=== PATIENT | female | born 1975 | race Caucasian/White ===

== ENCOUNTER 2017-04-10 12:20 | Inpatient (IN) ==
[2017-04-10 13:41] LABS: Basophils % 0.3 %; Eosinophils # 0.1 K/mcL (0.0-0.6); Eosinophils % 2.7 %; Hematocrit 20.9 % (35.3-44.9); Immature Granulocytes % 0.7 % (0-4); Lymphocytes # 0.6 K/mcL (0.6-4.6); Lymphocytes % 19.5 %; Mean Corpuscular HGB Conc 30.6 g/dL (31.6-35.5); Mean Corpuscular Volume 104.5 fL (83.0-100.0); Mean Platelet Volume 9.8 fL (9.4-12.4); Monocytes # 0.4 K/mcL (0.0-1.3); Neutrophils # 1.9 K/mcL (1.6-8.9); Nucleated Red Blood Cells 0.7 /100 WBC (0); Platelet Count 172 K/mcL (140-400); Red Cell Distribution Width 14.6 % (11.5-14.5); Segmented Neutrophils % 63.8 %
[2017-04-10 13:56] LABS: Alanine Aminotransferase 31 Units/L (0-55); Albumin 2.9 g/dL (3.5-5.0); Alkaline Phosphatase 123 Units/L (38-126); Aspartate Amino Transferase 38 Units/L (5-34); BUN/Creatinine Ratio 15 (6-26); Bilirubin,Direct 0.1 mg/dL (0.0-0.5); Bilirubin,Indirect 0.1 mg/dL (0.0-1.2); Bilirubin,Total 0.2 mg/dL (0.2-1.2); Blood Urea Nitrogen 11 mg/dL (7-20); Carbon Dioxide 19 mEq/L (19-29); Chloride 114 mEq/L (98-109); Globulin 2.8 g/dL (2.4-3.5); Glucose 100 mg/dL (70-99); Lipase 78 Units/L (8-78); Osmolality,Calculated 287 (280-300); Potassium 3.8 mEq/L (3.5-4.5); Sodium 139 mEq/L (136-145); Total Protein 5.7 g/dL (6.0-8.3); eGFR For African Americans > 60 (> 60); eGFR For Non-African Americans > 60 (> 60)
[2017-04-10 14:01] LABS: Hemoglobin 6.4 g/dL (11.5-15.4)
[2017-04-10 14:01] LABS: Bilirubin,Urine Negative (Negative); Blood,Urine Negative (Negative); Clarity,Urine Clear (Clear); Color,Urine Yellow (Yellow); Glucose,Urine (UA) Normal (Normal); Ketones,Urine Negative (Negative); Leukocyte Esterase,Urine Negative (Negative); Nitrite,Urine Negative (Negative); Protein,Urine Trace mg/dL (Neg-Trace); Urobilinogen,Urine Normal (Normal)
--- NOTE | 2017-04-10 15:16 | Emergency Department Note ---
Disposition Clinical Impression: Rectal bleeding Anemia Qualifiers: Anemia type: unspecified type Qualified Code(s): D64.9 - Anemia, unspecified Disposition: Admitted As Inpatient Condition: Fair Referrals: Trixie Wilson CNP [Primary Care Provider] - Forms: ED Satisfaction Letter Time of Disposition: 17:05 General Adult HPI - General Chief complaint: ED Nausea/Vomiting/Diarrhea Stated complaint: bloody stool/abd pain Time Seen by Provider: 04/10/17 15:07 Source: patient Mode of arrival: ambulatory Limitations: no limitations Nursing Notes Reviewed: Yes Vital Signs Reviewed: Yes - History of Present Illness HPI Narrative: 41-year-old who is status post pancreas and kidney transplant who comes in with rectal bleeding. Patient states this has been going on for the last couple months and she has been evaluated at her transplant center the [facility] with colonoscopy endoscopy she's had the swallowed the camera. States have not been able to find out where she is bleeding from. Pt Subjective Complaint: Rectal bleeding Onset (ago): month(s) (2) Location: abdomen Pain Scale: 2 Consistency: intermittent Improves with: nothing, movement Associated symptoms: Reports: weakness (Generalized) - Related Data Home Medications Medication Instructions Recorded Confirmed Aspirin [Lo-Dose Aspirin EC] 81 mg PO DAILY 02/09/17 02/09/17 Citalopram [CeleXA] 20 mg PO DAILY 02/09/17 02/09/17 Ferrous Sulfate tab PO BID 02/09/17 Mycophenolate Mofetil [Cellcept] 500 mg PO QID 02/09/17 02/09/17 PredniSONE [Lashonda] 5 mg PO DAILY 02/09/17 02/09/17 Sulfamethoxazole/Trimeth DS 1 tab PO DAILY 02/09/17 02/09/17 [Bactrim Ds] Tacrolimus [Prograf] 0.5 mg PO BID 02/09/17 02/09/17 Allergies Allergy/AdvReac Type Severity Reaction Status Date / Time metoclopramide [From Reglan] Allergy Shakiness Verified 02/09/17 13:10 codeine AdvReac Nausea Verified 02/09/17 13:10 All systems ED: reviewed and negative except as stated. Constitutional: Denies: fever, chills, weakness, weight change Eyes: Denies: eye pain, eye discharge, vision change ENT ED: Denies: ear pain, throat pain, dental pain, hearing loss, epistaxis, congestion, dysphagia Cardiovascular: Denies: chest pain, palpitations, dyspnea on exertion, edema, syncope Respiratory: Denies: cough, dyspnea, wheezes, hemoptysis, stridor Gastrointestinal: Reports: abdominal pain, hematochezia. Denies: nausea, vomiting, diarrhea, constipation, hematemesis, melena Genitourinary: Denies: dysuria, frequency, hematuria, discharge Musculoskeletal: Denies: back pain, neck pain, arthralgia, myalgia Integumentary: Denies: rash, abrasion, lesions Neurological: Denies: headache, weakness, numbness, paresthesias, confusion, abnormal gait, vertigo Psychiatric: Denies: anxiety, depression, suicidal thoughts, homicidal thoughts , auditory hallucinations, visual hallucinations Endocrine: Denies: fatigue Hematological/Lymphatic: Denies: easy bleeding, easy bruising Allergic/Immunologic: Denies: facial swelling, urticaria Past Medical History - Past Medical History Medical history: Reports: no medical history, hyperlipidemia, hypertension Surgical history: Reports: transplant (Heart and renal) Psychiatric history: Reports: anxiety, depression, panic disorder - Social History Smoking Status: Never smoker Alcohol use: Reports: none Drug use: Reports: none Physical Exam - General Limitations: no limitations General appearance: alert - Head Head exam: atraumatic, normocephalic, normal inspection - Eye Eye exam: Present: normal appearance, PERRL, EOMI - ENT ENT exam: normal exam, normal oropharynx, mucous membranes moist - Neck Neck exam: Present: normal inspection, full ROM, trachea midline - Chest Chest inspection: Present: normal inspection, symmetric chest wall rise - Respiratory Respiratory exam: Present: normal lung sounds bilaterally - Cardiovascular Cardiovascular exam: Present: regular rate, normal rhythm, normal heart sounds - Abdominal Exam Abdominal exam: Present: soft, Non-Tender. Absent: tenderness, distention, guarding, rebound, rigidity - Extremities Exam Extremities exam: Present: normal inspection, full ROM. Absent: tenderness, pedal edema - Expanded Lower Extremity Exam Neurovascular/Tendon exam: Absent: motor deficit, sensory deficit, tendon deficit Gait: observed and normal - Back Exam Back exam: Present: normal inspection, full ROM. 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 The father of the patient is adamant that she stay here and just received blood. Time: 16:42 - Consultations Consultation #1: I discussed the case with who is willing to admit the patient however he wants transplant to sign off on it. Time: 16:00 Consultation #2: I spoke to the transplant service at the [facility] who is covering for and they are okay with the patient staying here they request that the patient follow-up with him as an outpatient also follow up with [facility] after discharge. Time: 17:04 Consultation #3: Discussed with , admit. Time: 17:22 Vital Signs Temperature 99 F 04/10/17 12:41 Pulse Rate 79 04/10/17 12:41 Respiratory Rate 20 04/10/17 12:41 Blood Pressure 126/74 04/10/17 12:41 O2 Sat by Pulse Oximetry 97 04/10/17 12:41 Temperature 99 F 04/10/17 12:41 Pulse Rate 79 04/10/17 12:41 Respiratory Rate 20 04/10/17 12:41 Blood Pressure 126/74 04/10/17 12:41 O2 Sat by Pulse Oximetry 97 04/10/17 12:41 Oxygen Delivery Oxygen Delivery Room Air Medical Decision Making - Lab Data Lab results reviewed: Yes I reviewed the patient's lab results. Result diagrams: 04/10/17 13:09 04/10/17 13:09 Lab Results 04/10/17 04/10/17 04/10/17 Range/Units 13:09 13:09 13:53 WBC 2.9 L (4.3-11.1) K/mcL RBC 2.00 L (3.82-4.97) M/mcL Hgb 6.4 L (11.5-15.4) g/dL Hct 20.9 L (35.3-44.9) % MCV 104.5 H (83.0-100.0) fL MCH 32.0 (28.0-33.3) pg MCHC 30.6 L (31.6-35.5) g/dL RDW 14.6 H (11.5-14.5) % Plt Count 172 (140-400) K/mcL MPV 9.8 (9.4-12.4) fL Immature Gran % 0.7 (0-4) % Seg Neutrophils % 63.8 % Lymphocytes % 19.5 % Monocytes % 13.0 % Eosinophils % 2.7 % Basophils % 0.3 % Neutrophils # 1.9 (1.6-8.9) K/mcL Lymphocytes # 0.6 (0.6-4.6) K/mcL Monocytes # 0.4 (0.0-1.3) K/mcL Eosinophils # 0.1 (0.0-0.6) K/mcL Basophils # 0.0 (0.0-0.2) K/mcL Nucleated RBCs/100 WBC 0.7 H (0) /100 WBC Sodium 139 (136-145) mEq/L Potassium 3.8 (3.5-4.5) mEq/L Chloride 114 H (98-109) mEq/L Carbon Dioxide 19 (19-29) mEq/L BUN 11 (7-20) mg/dL Creatinine 0.75 (0.57-1.11) mg/dL Est GFR ( Amer) > 60 (> 60) Est GFR (Non-Af Amer) > 60 (> 60) BUN/Creatinine Ratio 15 (6-26) Glucose 100 H (70-99) mg/dL Calculated Osmolality 287 (280-300) Calcium 8.0 L (8.6-10.8) mg/dL Total Bilirubin 0.2 (0.2-1.2) mg/dL Direct Bilirubin 0.1 (0.0-0.5) mg/dL Indirect Bilirubin 0.1 (0.0-1.2) mg/dL AST 38 H (5-34) Units/L ALT 31 (0-55) Units/L Alkaline Phosphatase 123 (38-126) Units/L Serum Total Protein 5.7 L (6.0-8.3) g/dL Albumin 2.9 L (3.5-5.0) g/dL Globulin 2.8 (2.4-3.5) g/dL Albumin/Globulin Ratio 1.0 L (1.1-2.2) Lipase 78 (8-78) Units/L Ur Specimen Adequacy See below A Urine Color Yellow (Yellow) Urine Clarity Clear (Clear) Urine pH 6.0 (5.0-8.0) pH Units Ur Specific [place] 1.030 H (1.010-1.025) Urine Protein Trace (Neg-Trace) mg/dL Urine Glucose (UA) Normal (Normal) mg/dL Urine Ketones Negative (Negative) mg/dL Urine Blood Negative (Negative) Urine Nitrite Negative (Negative) Urine Bilirubin Negative (Negative) Urine Urobilinogen Normal (Normal) mg/dL Ur Leukocyte Esterase Negative (Negative) Ur Culture Indicated? NO (NO) Blood Type Antibody Screen Crossmatch 04/10/17 Range/Units 15:54 WBC (4.3-11.1) K/mcL RBC (3.82-4.97) M/mcL Hgb (11.5-15.4) g/dL Hct (35.3-44.9) % MCV (83.0-100.0) fL MCH (28.0-33.3) pg MCHC (31.6-35.5) g/dL RDW (11.5-14.5) % Plt Count (140-400) K/mcL MPV (9.4-12.4) fL Immature Gran % (0-4) % Seg Neutrophils % % Lymphocytes % % Monocytes % % Eosinophils % % Basophils % % Neutrophils # (1.6-8.9) K/mcL Lymphocytes # (0.6-4.6) K/mcL Monocytes # (0.0-1.3) K/mcL Eosinophils # (0.0-0.6) K/mcL Basophils # (0.0-0.2) K/mcL Nucleated RBCs/100 WBC (0) /100 WBC Sodium (136-145) mEq/L Potassium (3.5-4.5) mEq/L Chloride (98-109) mEq/L Carbon Dioxide (19-29) mEq/L BUN (7-20) mg/dL Creatinine (0.57-1.11) mg/dL Est GFR ( Amer) (> 60) Est GFR (Non-Af Amer) (> 60) BUN/Creatinine Ratio (6-26) Glucose (70-99) mg/dL Calculated Osmolality (280-300) Calcium (8.6-10.8) mg/dL Total Bilirubin (0.2-1.2) mg/dL Direct Bilirubin (0.0-0.5) mg/dL Indirect Bilirubin (0.0-1.2) mg/dL AST (5-34) Units/L ALT (0-55) Units/L Alkaline Phosphatase (38-126) Units/L Serum Total Protein (6.0-8.3) g/dL Albumin (3.5-5.0) g/dL Globulin (2.4-3.5) g/dL Albumin/Globulin Ratio (1.1-2.2) Lipase (8-78) Units/L Ur Specimen Adequacy Urine Color (Yellow) Urine Clarity (Clear) Urine pH (5.0-8.0) pH Units Ur Specific [place] (1.010-1.025) Urine Protein (Neg-Trace) mg/dL Urine Glucose (UA) (Normal) mg/dL Urine Ketones (Negative) mg/dL Urine Blood (Negative) Urine Nitrite (Negative) Urine Bilirubin (Negative) Urine Urobilinogen (Normal) mg/dL Ur Leukocyte Esterase (Negative) Ur Culture Indicated? (NO) Blood Type A POSITIVE Antibody Screen NEGATIVE Crossmatch See Detail Critical Care Time Critical Care Time: Yes Total Critical Care Time: 30 Attestation: The high probability of a clinically significant, sudden or life threatening deterioration of the [GI] system(s) required my full and direct attention, intervention and personal management. The aggregate critical care time was [30] minutes. This time is in addition to time spent performing reported procedures but includes the following: [x] Data Review and interpretation [x] Patient assessment and monitoring of vital signs [x] Documentation [x] Medication orders and management
[2017-04-10] MEDS ORDERED: 0.9 % Sodium Chloride 500 ML ONE ×2 (17:42→22:41)
[2017-04-10] MEDS ORDERED: Acetaminophen 325 MG TABLET PO PRN (17:48)
[2017-04-10] MEDS ORDERED: Naloxone 0.4 MG/ML INJ IVP PRN (17:48)
[2017-04-10] MEDS ORDERED: *HR* Promethazine 25 MG/ML VIAL IVP PRN (17:48)
[2017-04-10] MEDS ORDERED: Pantoprazole 80 MG in 0.9 % Sodium Chloride 250 ML IVC SCH (18:00)
[2017-04-10 18:21] LABS: Prothrombin Time 10.9 Seconds (9.4-12.1)
[2017-04-10 18:24] LABS: Activated Partial Thrombo Time 22.5 Seconds (26.0-36.0)
--- NOTE | 2017-04-10 18:46 | Internal Med History&Physical ---
Date of Encounter: 04/10/17 Time of Encounter: 16:15 Assessment and Plan (1) Symptomatic anemia Current visit: Yes Status: Acute 1. Will start with PRBC transfusion with 3 units PRBC's. 2. Will trend Hgb/HCT. 3. Monitor on telemetry. (2) Rectal bleeding Current visit: Yes Status: Acute 1. I consulted Dr. Aguirre; Dr. Cardoso will see patient in consultation in morning. 2. Will keep npo after midnight for possible endoscopy if necessary. 3. Will request endoscopy records from [facility] and capsule endoscopy results. 4. Will place on IV Protonix drip. (3) Transplant recipient Current visit: Yes Status: Chronic 1. Patient's father adamantly refuses to transfer patient to [facility]. Patient seems agreeable if the need arises. 2. [facility] trasnplant team contacted by Dr. Delgado per my request, and they are agreeable to us admitting patient here at [place]. 3. Continue home transplant meds as prescribed. 4. Phone consult and/or transfer to [facility] if any concerns and/or complications arise. Patient voiced understanding and agreement. Father did not, however. (4) DVT prophylaxis Current visit: Yes Status: Acute 1. EPCD's. 2. No anticoagulants due to GI bleed. Internal Medicine - H&P: HPI Chief complaint: GI Bleed Admitted From: Emergency Dept Plans for Post Hospital Care: Home History of present illness: Ms. King is a 41 year old female who presents to the ER today with persistent and recurrent rectal bleeding for last 2-3 months. She has had recurrent episodes, and the most recent episode started 2 days ago. She came to the ER for evaluation and she was found to be profoundly anemic with hemoglobin 6.4. She has felt lightheaded and dizzy as well as short of breath from the anemia. Patient has had extensive workup at the [facility] in the last 2 months, including EGD, colonoscopy, and capsule endoscopy. Reportedly, her first 2 studies were negative and she is still awaiting results regarding her capsule endoscopy findings. I was asked by the ER staff to admit patient, but given her past medical history, I was rather reluctant to do so. She has extensive history of multiple transplants, including heart, lung, kidney 2, and pancreas 2. She follows extensively with [facility] transplant team, and I recommended the ER staff transfer patient to [facility]. However, patient's father is adamant that she be admitted here and not be transferred to [place]. Based upon this discussion with Dr. Delgado, I saw the patient in the ER and discussed my concerns, findings, and recommendations with patient and her father. Patient presently is stable with stable vital signs. She denies any chest pain , shortness of breath, nausea, or vomiting. She has minimal vague abdominal cramping. Furthermore, she confirms that she has had rectal bleeding off and on for the last few months. I informed her and her father that we are not a transplant center. Furthermore, I informed them that we are not familiar with and/or have expertise with her transplant medications. I recommended the ER staff contact the [facility] transplant center and discuss with their physicians. If their physicians are OK with patient staying here at [place] , I informed them we could admit her here with close phone contact with the transfer center if necessary. Additionally, if there is any complication or any concern, I would recommend transfer to [place] for further specialty consultation and care. Patient was agreeable, but her father was rather adamant and refusing to go to [place]. Dr. Delgado did contact [facility] transplant center and discussed with the transplant physician. They were agreeable with the plan and available for phone consultation and/or transfer if necessary. Past Med Surg Social Fam HX - Past Medical History Attestation: Yes The following information was validated with the patient. 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) Psychiatric history: anxiety, depression, panic disorder - Past Surgical History Surgical History: transplant (heart, double lung, kidney X2, pancreas x 2) - Social History Smoking Status: Never smoker Alcohol use: none Drug use: none Current living situation: Home, With Family Activity Level: Independent ambulation Recent Out of Country Travel Within the Last 8 Weeks: No - Family History Father Living Status: Still Living Hx Family GI Disorders: No Hx Family Genitourinary Disorders: No - Additional Family History Additional family history: No FH GI bleed, polyps, colon CA Internal Medicine - H&P: Meds Aspirin [Lo-Dose Aspirin EC] 81 mg PO DAILY 02/09/17 [History] Citalopram [CeleXA] 20 mg PO DAILY 02/09/17 [History] Ferrous Sulfate 325 mg PO BID 02/09/17 [History] Mycophenolate Mofetil [Cellcept] 500 mg PO QID 02/09/17 [History] Sulfamethoxazole/Trimeth DS [Bactrim Ds] 1 tab PO DAILY 02/09/17 [History] Ascorbate Calcium [Vitamin C] 500 mg PO BID 04/10/17 [History] Multivitamin [One Daily Essential] 1 each PO DAILY 04/10/17 [History] Omeprazole Magnesium [Prilosec Otc] 20 mg PO DAILY 04/10/17 [History] Tacrolimus [Prograf] 1 mg PO BID 04/10/17 [History] predniSONE [PredniSONE] 5 mg PO DAILY 04/10/17 [History] 3 Allergy/AdvReac Type Severity Reaction Status Date / Time metoclopramide [From Reglan] Allergy Shakiness Verified 02/09/17 13:10 codeine AdvReac Nausea Verified 02/09/17 13:10 - Constitutional Constitutional: fatigue, no chills, no fever(s), no night sweats - EENT Eyes: no blurry vision, no change in vision Ears: no ear pain, no tinnitus Nose, mouth and throat: no nasal discharge, no sinus pressure, no sore throat - Cardiovascular Cardiovascular ROS IM: dyspnea, dyspnea on exertion, no chest pain, no edema, no orthopnea, no palpitations, no syncope - Respiratory Respiratory: no cough, no hemoptysis, no chest congestion - Gastrointestinal Gastrointestinal: abdominal pain (vague cramping), cramping, heartburn, hematochezia, nausea, no hematemesis, no melena, no vomiting - Genitourinary Genitourinary: no dysuria, no flank pain, no hematuria - Musculoskeletal Musculoskeletal ROS IM: no arthralgias, no back pain, no muscle weakness - Integumentary Integumentary IM: no rash, no jaundice - Neurological Neurological ROS: dizziness, weakness, no focal weakness, no frequent falls, no headache(s) - Psychiatric Psychiatric: no anxiety, no depression - Endocrine Endocrine IM: no polydipsia, no polyuria - Hematologic/Lymphatic Hematologic/Lymphatic: no lymphadenopathy - Allergic/Immunologic Allergic/Immunologic: no wheezing, no GI upset with certain foods - Constitutional Vitals: Temp Pulse Resp BP Pulse Ox 99 F 79 20 126/74 97 04/10/17 12:41 04/10/17 12:41 04/10/17 12:41 04/10/17 12:41 04/10/17 12:41 General appearance: Present: cooperative, A&O X 3, pleasant, no acute distress Exam: pale in complexion, otherwise no distress - Head Head exam: Present: atraumatic, normal inspection - Eye Eye exam: Present: EOMI, PERRL. Absent: scleral icterus Pupils: Present: normal accommodation - ENT ENT exam: Present: mucous membranes moist, normal exam - Neck Neck exam general surgery: Present: full ROM, thyromegaly. Absent: tenderness, supple - Respiratory Respiratory exam: Present: CTAB. Absent: accessory muscle use, chest wall tenderness, rales, rhonchi, wheezes - Cardiovascular Cardiovascular exam: Present: RRR, +S1, +S2. Absent: diastolic murmur, systolic murmur - GI/Abdominal GI/Abdominal exam: Present: normal bowel sounds, soft. Absent: guarding, hepatomegaly, mass, rebound, splenomegaly, tenderness - Extremities Exam Extremities exam: Present: full ROM, warm, radial pulses palpable and symmetrical. Absent: calf tenderness, joint swelling, pedal edema - Back Exam Back exam: Present: normal inspection. Absent: CVA tenderness (L), CVA tenderness (R) - Neurological Exam Neurological exam: Present: alert, CN II-XII intact, oriented X3, no focal deficits - Psychiatric Psychiatric exam: Present: normal affect, normal mood - Skin Skin exam: Present: dry, pallor, warm Internal Med - H&P Results - Labs CBC & Chem 7: 04/10/17 13:09 04/10/17 13:09
[2017-04-10] MEDS ORDERED: 0.9 % Sodium Chloride 1,000 ML IVC SCH (21:00)
[2017-04-10] MEDS ORDERED: (Tacrolimus [Prograf] 1 MG) PO SCH (21:00)
[2017-04-10 22:34] LABS: Hematocrit 26.8 % (35.3-44.9)
[2017-04-10 22:35] LABS: Hemoglobin 8.3 g/dL (11.5-15.4)
[2017-04-10] MEDS: Ascorbic Acid 500 MG TABLET PO SCH (22:47)
[2017-04-10] MEDS: (Tacrolimus [Prograf] 1 MG) PO SCH (23:45)
[2017-04-11] MEDS ORDERED: 0.9 % Sodium Chloride 1,000 ML IVC SCH (03:15)
[2017-04-11] MEDS ORDERED: 0.9 % Sodium Chloride 250 ML ONE (03:17)
[2017-04-11] MEDS ORDERED: Pantoprazole 40 MG VIAL IVP SCH (06:00)
[2017-04-11 08:23] LABS: Alanine Aminotransferase 25 Units/L (0-55); Albumin 2.5 g/dL (3.5-5.0); Albumin/Globulin Ratio 0.9 (1.1-2.2); Alkaline Phosphatase 104 Units/L (38-126); Aspartate Amino Transferase 26 Units/L (5-34); BUN/Creatinine Ratio 12 (6-26); Bilirubin,Total 0.6 mg/dL (0.2-1.2); Blood Urea Nitrogen 8 mg/dL (7-20); Calcium 7.8 mg/dL (8.6-10.8); Carbon Dioxide 19 mEq/L (19-29); Chloride 115 mEq/L (98-109); Globulin 2.8 g/dL (2.4-3.5); Glucose 81 mg/dL (70-99); Magnesium 1.5 mg/dL (1.6-2.6); Osmolality,Calculated 287 (280-300); Potassium 3.8 mEq/L (3.5-4.5); Sodium 140 mEq/L (136-145); Total Protein 5.3 g/dL (6.0-8.3); eGFR For African Americans > 60 (> 60); eGFR For Non-African Americans > 60 (> 60)
[2017-04-11] MEDS ORDERED: Multivit/Ca/Min/Fe/FA 1 TAB TABLET PO SCH (09:00)
[2017-04-11] MEDS ORDERED: Sulfamethoxazole/Trimeth DS 1 EACH TABLET PO SCH (09:00)
[2017-04-11] MEDS ORDERED: predniSONE 5 MG TABLET PO SCH (09:00)
[2017-04-11] MEDS ORDERED: Aspirin Enteric Coated 81 MG Tablet PO SCH (09:00)
[2017-04-11 09:14] LABS: Basophils % 0.6 %; Eosinophils # 0.1 K/mcL (0.0-0.6); Eosinophils % 2.6 %; Hematocrit 32.5 % (35.3-44.9); Immature Platelets 2.1 % (1.1-6.1); Lymphocytes # 0.7 K/mcL (0.6-4.6); Lymphocytes % 23.2 %; Mean Corpuscular Hemoglobin 30.9 pg (28.0-33.3); Mean Platelet Volume 9.6 fL (9.4-12.4); Monocytes # 0.5 K/mcL (0.0-1.3); Monocytes % 15.4 %; Neutrophils # 1.8 K/mcL (1.6-8.9); Nucleated Red Blood Cells 0.6 /100 WBC (0); Platelet Count 177 K/mcL (140-400); Red Blood Count 3.37 M/mcL (3.82-4.97); Red Cell Distribution Width 17.7 % (11.5-14.5); Segmented Neutrophils % 57.2 %
[2017-04-11 09:22] LABS: Mean Corpuscular Volume 96.4 fL (83.0-100.0)
[2017-04-11 09:23] LABS: Hemoglobin 10.4 g/dL (11.5-15.4)
[2017-04-11] MEDS: (Tacrolimus [Prograf] 1 MG) PO SCH (10:29)
[2017-04-11] MEDS: Ascorbic Acid 500 MG TABLET PO SCH (10:29)
--- NOTE | 2017-04-11 10:32 | Gastroenterology Consult Note ---
Date of Encounter: 04/11/17 Time of Encounter: 10:30 - Assessment and plan (1) Rectal bleeding Current Visit: Yes Status: Acute Assessment and plan: Patient nothing by mouth overnight. Records requested from [facility] for capsule endoscopy results. Continue Protonix. Plan for EGD Keep NPO (2) Anemia Current Visit: Yes Status: Acute Assessment and plan: Secondary to GI bleed. 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 Plan as per primary. (4) DVT prophylaxis Current Visit: Yes Status: Acute Assessment and plan: EPC D - Time Spent With Patient Total time spent is greater than 50% in coordination of care (as documented) at patient's floor/unit and/or counseling patient: GI History of Present Illness - Data of Consult Patient: new to practice Consult date: 04/10/17 Requesting Physician: Albert Ocampo - Consult Narrative Reason for consult: Hematochezia History of present illness: Ms. King is a 41 year old female presented to ER with chief complaint of bleeding per rectum. Patient states she has had recurrent rectal bleeding for the last 2-3 months. Her last episode was last Monday where she had blood mixed with her stool and noticed pink discoloration of water in the toilet. Patient presented with a hemoglobin of 6.4. She states that she has had evaluation of GI bleed at [facility] which required blood transfusion. She has had a colonoscopy and endoscopy which were negative. She also had a pill endoscopy which has not resulted yet. She states that for the past 2 months her hemoglobin has been stable at 9.8. Patient states that she will have bleeding per rectum and after a few days. In resolve on its own. This occurs every 2-3 weeks. Currently patient denies abdominal pain, nausea, vomiting. Past Med Surg Social Fam HX - Past Medical History Medical history: hyperlipidemia, hypertension, other Psychiatric history: anxiety, depression, panic disorder - Past Surgical History Surgical History: transplant - Social History Smoking Status: Never smoker Smokeless Tobacco Status: No Alcohol use: none Drug use: none - Family History Father Living Status: Still Living Hx Family GI Disorders: No Hx Family Genitourinary Disorders: No Mother Age: 65 Living Status: Still Living Hx Family Endocrine Disorder: Yes (DM) Hx Family Autoimmune Disorders: Yes (Lupus) Review of Systems: Constitutional: Denies fever, chills HEENT: Denies headache, vision changes, neck pain, sore throat, rhinorrhea Heart: Denies chest pain palpitations Lungs: Denies shortness of breath cough Abdomen: Denies abdominal pain nausea vomiting. Reports hematochezia Back: Denies back pain Kidney: Denies dysuria, hematuria Skin: warm and dry Extremities: Denies swelling, pain Neuro: Denies numbness, and tingling - Constitutional Vitals: Temp Pulse Resp BP Pulse Ox 98.6 F 70 16 130/78 98 04/11/17 03:55 04/11/17 07:00 04/11/17 07:00 04/11/17 07:00 04/11/17 03:55 - Other Additional findings: General: Does not without distress HEENT: Head atraumatic, normocephalic, EOMI, PERRLA, neck nontender to palpation , absent lymphadenopathy, Moist Mucous Membranes, Heart: Regular rate and rhythm with no murmur Lungs: Clear to auscultation bilaterally Abdomen: Soft nontender, nondistended positive bowel sounds Skin: warm and dry Extremities: Absent pedal edema, Neuro: Cranial nerves II through XII intact, UE and LE sensation equal bilaterally, UE and LEstrength 5/5, alert oriented 3, Heel to mason intact, finger to nose intact, Gait intact, rhombergs sign negative, b/l plantar reflexes downwards Vascular: Pedal and radial pulses 2 out of 4 Results - Labs CBC & Chem 7: 04/11/17 09:03 04/11/17 07:53 Labs: Last Result Calcium 7.8 mg/dL (8.6-10.8) L 04/11/17 07:53 Entire Visit Hgb 10.4 g/dL (11.5-15.4) L D 04/11/17 09:03 Hct 32.5 % (35.3-44.9) L 04/11/17 09:03 PT 10.9 Seconds (9.4-12.1) 04/10/17 15:54 Total Bilirubin 0.6 mg/dL (0.2-1.2) 04/11/17 07:53 AST 26 Units/L (5-34) 04/11/17 07:53 ALT 25 Units/L (0-55) 04/11/17 07:53 Lipase 78 Units/L (8-78) 04/10/17 13:09 - ABG ABG results: PT/INR, D-dimer PT 10.9 Seconds (9.4-12.1) 04/10/17 15:54 Consult Discharge Plan - Plan Referrals: Trixie Wilson, HYDRAULIC REPAIRER [Primary Care Provider] -
[2017-04-11 14:01] LABS: Hematocrit 32.5 % (35.3-44.9); Hemoglobin 10.6 g/dL (11.5-15.4)
[2017-04-11 15:19] VITALS: BP 139/87
--- NOTE | 2017-04-11 16:20 | Discharge Summary ---
Date of Encounter: 04/11/17 Time of Encounter: 11:00 - Discharge Medications Home Medications: Aspirin [Lo-Dose Aspirin EC] 81 mg PO DAILY 02/09/17 [History] Citalopram [CeleXA] 20 mg PO DAILY 02/09/17 [History] Ferrous Sulfate 325 mg PO BID 02/09/17 [History] Mycophenolate Mofetil [Cellcept] 500 mg PO QID 02/09/17 [History] Sulfamethoxazole/Trimeth DS [Bactrim Ds] 1 tab PO DAILY 02/09/17 [History] Ascorbate Calcium [Vitamin C] 500 mg PO BID 04/10/17 [History] Multivitamin [One Daily Essential] 1 each PO DAILY 04/10/17 [History] Omeprazole Magnesium [Prilosec Otc] 20 mg PO DAILY 04/10/17 [History] Tacrolimus [Prograf] 1 mg PO BID 04/10/17 [History] predniSONE [PredniSONE] 5 mg PO DAILY 04/10/17 [History] Allergies/Adverse Reactions: 3 Allergy/AdvReac Type Severity Reaction Status Date / Time metoclopramide [From Reglan] Allergy Shakiness Verified 02/09/17 13:10 codeine AdvReac Nausea Verified 02/09/17 13:10 Date of admission: 04/10/17 18:20 Primary care physician: Trixie Wilson CNP - Patient Status Disposition: Home, Self-Care Condition: Fair - Discharge Instructions Follow Up With: Trixie Wilson CNP [Primary Care Provider] - Hospital course: Patient is a 41 year old female who presented to the ER on 04/10/17 with persistent and recurrent rectal bleeding for last 2-3 months. She has had recurrent episodes, and the most recent episode started 2 days prior to this admission. Patient has had extensive workup at the [facility] in the last 2 months, including EGD, colonoscopy, and capsule endoscopy. Reportedly, her first 2 studies were negative and she is still awaiting results regarding her capsule endoscopy findings. In addition, she has extensive history of multiple transplants, including heart , lung, kidney 2, and pancreas 2. She follows extensively with [facility] transplant team. In the ER, she was found to be profoundly anemic with hemoglobin 6.4. She has felt lightheaded and dizzy as well as short of breath from the anemia. During patients hospital stay, she was transfused 3 units of packed red blood cells and hemoglobin improved to 10.6. H&H is a symptomatic. GI was consulted but patient/family refused any further treatment/work-up so patient will be discharged to follow up with GI at [facility]. - Time Spent with Patient Total time spent providing and/or coordinating discharge services: Less than 30 minutes - Constitutional Vitals: Temp Pulse Resp BP Pulse Ox 98.6 F 71 18 139/87 98 04/11/17 03:55 04/11/17 15:00 04/11/17 15:00 04/11/17 15:00 04/11/17 03:55 General appearance: Present: cooperative, A&O X 3, pleasant, no acute distress - Respiratory Respiratory exam: Present: CTAB. Absent: accessory muscle use, rales, rhonchi, wheezes - Cardiovascular Cardiovascular exam: Present: RRR, +S1, +S2. Absent: diastolic murmur, gallop, rubs, systolic murmur - GI/Abdominal GI/Abdominal exam: Present: normal bowel sounds, soft, no peritoneal signs. Absent: distended, tenderness - VTE Documentation of Mechanical Device: Intermittent pneumatic compression device
== END 2017-04-11 16:59 | disposition home or self-care (01) | DRG 812 ==
LOC: EMEROO 12:20 → SUATTDRO 18:20 → 2NENU 18:20
PROVIDERS: ADMIT Pediatrics; ATTEND Hospitalist